=== PATIENT | male | born 1970 | race African-American/Black ===

== ENCOUNTER 2020-06-13 00:31 | Emergency (ER) | payer OTHER | END 2020-06-13 01:25 | disposition home or self-care (01) | LOC: ERS 00:31 | DX: S60.411A Abrasion of left index finger, initial encounter (principal); E11.9 Type 2 diabetes mellitus without complications; E78.5 Hyperlipidemia, unspecified; I10 Essential (primary) hypertension; W45.8XXA Other foreign body or object entering through skin, initial encounter | CPT/HCPCS: 99282 ==